=== PATIENT | male | born 1945 | race Caucasian/White ===

== ENCOUNTER → 2016-11-14 | Outpatient (CLI) | payer MEDICARE ==
--- NOTE | 2016-11-14 18:06 | PCVCIMAG ---
APPROVED REPORT Exam: Stress Echocardiogram Patient Location: Echo lab Stress Nurse: Joellen Kiser RN Status: routine HR: 78 bpm Rhythm: NSR Procedure The patient underwent an Exercise Stress Test using the Jaspal Protocol. Blood pressure, heart rate, and EKG were monitored. An Echocardiogram was performed by neurology technician in four stages in quad fashion. At peak stress, four selected images were obtained and placed side by side with resting images for comparison. Stress Test Details Stress Test: Exercise stress testing was performed using a Jaspal protocol. HR Resting HR: 78 bpmMax Heart Rate (APMHR): 149 bpm Max HR Achieved: 162 bpmTarget HR (85% APMHR): 126 bpm % of APMHR: 108 BP Resting BP: 130/85 mmHg Max BP: 188/78 mmHg ECG Resting ECG: Sinus Rhythm Clinical Reason for Termination: Maximal effort Exercise duration: 10 min 25 sec Highest Stage Achieved: Stage 4: 4.2 mph at 16% grade. Exercise capacity: 13.40 METs Pre-Stress Echo The resting Echocardiogram showed normal left ventricular contractility with an estimated Ejection Fraction of about >55%. Post-Stress Echo The stress Echocardiogram showed normal left ventricular contractility with an estimated Ejection Fraction of about 60-65%. Conclusion Clinical Response: Non-ischemic Exercise Capacity: Superior Stress ECG Response: Non-ischemic Stress Echo Images: Non-ischemic
== END | disposition home or self-care (01) ==
LOC: PCVCIMAG 13:41
PROVIDERS: ATTEND Internal Medicine Cardiovascular Disease
DX: R07.9 Chest pain, unspecified (principal)
CPT/HCPCS: 80061; 93325; 93351

== ENCOUNTER → 2017-08-17 | Outpatient (CLI) | payer MEDICARE | END | disposition home or self-care (01) | LOC: PCVCIMAG 10:51 | DX: R10.32 Left lower quadrant pain (principal); M79.605 Pain in left leg; R19.09 Other intra-abdominal and pelvic swelling, mass and lump | CPT/HCPCS: 93926 ==

== ENCOUNTER → 2017-11-14 | Outpatient (CLI) | payer MEDICARE | END | disposition home or self-care (01) | LOC: PCVCCLINIC 12:49 | DX: I11.0 Hypertensive heart disease with heart failure (principal); I05.9 Rheumatic mitral valve disease, unspecified; E78.2 Mixed hyperlipidemia; Z82.49 Family history of ischemic heart disease and other diseases of the circulatory system | CPT/HCPCS: 80061; 93005; G0463 ==

== ENCOUNTER → 2018-05-09 | Outpatient (CLI) | payer MEDICARE ==
--- NOTE | 2018-05-09 15:21 | PCVCIMAG ---
APPROVED REPORT Study performed: 05/09/2018 14:14:53 Exam: Stress Echocardiogram Indication: mitral valve ring repair, HTN, HLP, fam hx CAD Patient Location: Echo lab Stress Nurse: Estela Bond RN Status: routine Ht: 5 ft 9 in HR: 94 bpm BP: 146/86 mmHg Rhythm: NSR Procedure The patient underwent an Exercise Stress Test using the Jaspal Protocol. Blood pressure, heart rate, and EKG were monitored. An Echocardiogram was performed by utility locate technician in four stages in quad fashion. At peak stress, four selected images were obtained and placed side by side with resting images for comparison. Stress Test Details Stress Test: Exercise stress testing was performed using a Jaspal protocol. HR Resting HR: 94 bpmMax Heart Rate (APMHR): 148 bpm Max HR Achieved: 153 bpmTarget HR (85% APMHR): 125 bpm % of APMHR: 103 Recovery HR: 107 bpm HR response to stress: Normal HR response to stress BP Resting BP: 146/86 mmHg Max BP: 190/100 mmHg Recovery BP: 166/90 mmHg BP response to stress: Normal blood pressure response to stress. ECG Resting ECG: Sinus Rhythm Stress ECG: Sinus Rhythm ST Change: Normal Arrhythmia: frequent multi-focal PVCs Recovery ECG: Sinus Rhythm Recovery ST Change: Normal Recovery Arrhythmia: frequent multi-focal PVCs Clinical Reason for Termination: Maximal effort Exercise duration: 10 min 32 sec Highest Stage Achieved: Stage 4: 4.2 mph at 16% grade. Exercise capacity: 13.7 METs Overall Exercise Capacity for Age: Excellent Scale: Active Angina Score: None Pre-Stress Echo The resting Echocardiogram showed normal left ventricular contractility with an estimated Ejection Fraction of about >55%. Normal wall motion in all segments on baseline images. Post-Stress Echo The stress Echocardiogram showed normal left ventricular contractility with an estimated Ejection Fraction of about 65%. Normal augmentation of wall motion in all segments on post stress images. Clinical No clinical or ECG evidence for ischemia. Conclusion Clinical Response: Non-ischemic Exercise Capacity: Superior Stress ECG Response: Non-ischemic Stress Echo Images: Non-ischemic The left ventricle is normal in size and wall thickness in both the rest and stress images. Normally functioning MV ring repair with trace mitral regurgitation. MVA by PHT is 2.8 cm2 and mean gradient is 2.3 mmHg with peak gradient of 5.7 mmHg. Other Information Study Quality: Adequate <Conclusion> The left ventricle is normal in size and wall thickness in both the rest and stress images. Normally functioning MV ring repair with trace mitral regurgitation. MVA by PHT is 2.8 cm2 and mean gradient is 2.3 mmHg with peak gradient of 5.7 mmHg.
== END | disposition home or self-care (01) ==
LOC: PCVCIMAG 14:35
PROVIDERS: ATTEND Internal Medicine Cardiovascular Disease
DX: I10 Essential (primary) hypertension (principal); E78.5 Hyperlipidemia, unspecified; Z82.49 Family history of ischemic heart disease and other diseases of the circulatory system
CPT/HCPCS: 93325; 93351

== ENCOUNTER → 2018-12-03 | Outpatient (CLI) | payer MEDICARE | END | disposition home or self-care (01) | LOC: PCVCCLINIC 14:27 | PROVIDERS: ATTEND Internal Medicine Cardiovascular Disease | DX: E78.5 Hyperlipidemia, unspecified (principal); E78.00 Pure hypercholesterolemia, unspecified; Z98.890 Other specified postprocedural states; Z82.49 Family history of ischemic heart disease and other diseases of the circulatory system; Z72.89 Other problems related to lifestyle; Z79.899 Other long term (current) drug therapy | CPT/HCPCS: 36415; 80061; 93005; G0463 ==